=== PATIENT | female | born 1950 | race American Indian/Alaskan Native ===

== ENCOUNTER 2016-08-03 11:11 | Outpatient (CLI) | payer MEDICARE, OTHER ==
--- NOTE | 2016-08-03 11:44 | Ultrasound Report ---
THYROID ULTRASOUND:08/03/16 11:11:00 CLINICAL: Thyroid cancer restaging. Status post thyroidectomy. FINDINGS: High-resolution ultrasound demonstrated no residual thyroid and no mass. No lymphadenopathy of the neck. IMPRESSION: Negative study status post total thyroidectomy.
== END 2016-08-03 11:12 | disposition home or self-care (01) ==
LOC: SPVWC 11:11
PROVIDERS: ATTEND Internal Medicine Endocrinology, Diabetes & Metabolism
DX: C73 Malignant neoplasm of thyroid gland (principal); I11.0 Hypertensive heart disease with heart failure; I50.9 Heart failure, unspecified; Z90.89 Acquired absence of other organs
CPT/HCPCS: 76536